=== PATIENT | female | born 1945 | race Caucasian/White ===

== ENCOUNTER → 2018-09-07 12:11 | Outpatient (CLI) | payer MEDICARE, SELFPAY ==
[2018-09-07 12:55] LABS: Add Manual Diff / Slide Review NO; Basophils Percent Auto 0.6 % (0-2); Hematocrit 37.4 % (36-46); Hemoglobin 12.5 g/dL (12.0-16.0); Lymphocytes Percent Auto 27.4 % (25-40); Mean Corpuscular HGB Conc 33.5 % (30-36); Mean Corpuscular Hemoglobin 30.5 PG (26-34); Mean Corpuscular Volume 90.9 fL (80-100); Monocytes Percent Auto 11.3 % (3-14); Neutrophils Absolute Auto 2200 /uL (3000-5900); Neutrophils Percent Auto 60.7 % (50-75); Platelet Count 305 X10^3/uL (150-400); Red Blood Cell Count 4.11 X10^6/uL (4.0-5.2); Red Cell Distribution Width 14.2 % (11.6-14.8); White Blood Cell Count 3.6 X10^3/uL (4.5-11.0)
== END ==
PROVIDERS: Visit Provider Orthopaedic Surgery
DX: Z01.818 Encounter for other preprocedural examination (principal); Z01.812 Encounter for preprocedural laboratory examination
CPT/HCPCS: 36415; 85025; 93005

== ENCOUNTER 2018-09-11 14:21 | Day surgery (SDC) | payer OTHER, MEDICARE, SELFPAY ==
[2018-09-11] VITALS (7 sets, daily range): BP systolic 134–149; BP diastolic 53–69; PULSE 74–83; RESP 9–16; TEMP 36.6–36.9; O2SAT 97–99; BMI 19.5
--- NOTE | 2018-09-11 | PATH_ITS ---
[facility] Accession Number: [id number] . 01 Material submitted: . VERTEBRAL BIOSY L3 . 02 Diagnosis: Bone, Vertebral L3, Biopsy: Fragmented bone with features suggestive of remodeling/fracture healing. No evidence of neoplasm. MRV/09/13/2018 . 02 Electronically signed: . Geraldine Guerin MD, Pathologist NPI- [id number] . 01 Gross description: . Received in formalin, labeled vertebral bone L3, is a core biopsy of barajas-red hard bone (length-0.9 cm, diameter-0.2 cm). Decalcified and submitted intact in cassette A1. ([id number]) /MRV . 02 Pathologist provided ICD-10: S32.000S . 02 CPT . 021996 Performed at: 01 [facility] [address] [address] [id number] MD Mathew Haile MD Phone: [phone] Performed at: 02 [facility] [address] [place] [id number] MD James Joshua MD Phone: [phone]
--- NOTE | 2018-09-11 | DI.RAD.S_ITS ---
PROCEDURE: XR LUMBAR SPINE MIN 4V INDICATIONS: L3 KYPHOPLASTY TECHNIQUE: AP and lateral views of the lumbar spine acquired. COMPARISON: [facility], CT, CT CHEST ABDOMEN PELVIS WITH CONTRAST, 08/04/2018, 22:48. FINDINGS: Intraoperative fluoroscopic radiographs in the AP and lateral projections document the placement of instrumentation within the compression fracture of the L3 vertebral body and subsequent placement of radiopaque material. IMPRESSION: Intraoperative fluoroscopy demonstrating instrumentation of the L3 vertebral body compression fracture with placement of radiopaque material consistent with kyphoplasty. Please refer to the operative note for procedural details. Dictated by: Colt Andrews M.D. on 09/11/2018 at 19:43 Approved by: Colt Andrews M.D. on 09/11/2018 at 19:46
[2018-09-11] MEDS: LACTATED RINGERS 1,000 ML 42 ML IV (14:30)
--- NOTE | 2018-09-11 16:08 | SUR.OPER ---
Prone on spine table, head in foam head support, padded chest rolls, gel pad at knees, lower legs supported by pillows; nipples, genitalia and toes free of pressure, arms secured on gel padded arm boards at <90 degrees abduction. Tape over blanket at thigh secured to table.
--- NOTE | 2018-09-11 16:58 | PM.PREOP ---
Pre-operative Note Interval Note Pre-op Check: Yes History & Physical Reviewed by Physician and Yes Exam Performed Changes: No
--- NOTE | 2018-09-11 16:59 | PM.OP.1 ---
Operative Date/Time/Diagnoses Date of procedure: 09/11/18 Time of procedure: 17:57 Pre-op diagnosis: L3 compression fracture Back pain Post-op diagnosis: same Procedure & Clinicians Procedure: L3 kyphoplasty Same procedure as scheduled: Yes Indications: [age] year old female with intractable pain from compression fracture of L3. They had failed conservative management and requested operative intervention. Risks and benefits of surgery were discussed and appropriate consents were obtained. Surgeon: Filipe Dotson Click Yes if Unassisted: Yes Anesthesia Type: General Operative Notes Findings: None Closure Type: primary Specimen(s): other (L3 vertebral body) Estimated Blood Loss (mL): 2 Procedure in detail: The patient was brought to the operating room and intubated on the table. They were then rolled over to the well-padded prone position. Time-out was performed. We confirmed positioning with two fluoroscopy views. The back was prepped and draped in the standard sterile fashion. Preoperative antibiotics were given. Using fluoroscopic guidance, the planned incision site was infiltrated with Marcaine with epinephrine and injected down to the entry site of the left pedicle of L3. A small stab incision was made and we advanced a Jamshiedi needle down the left pedicle into the vertebral body. A bone biopsy was harvested from this and sent to pathology. We then passed the DFine osteotome and opened it up to create a void inside the vertebral body. We then began injecting the cement. This was done with frequent fluoroscopy imaging. There was no extravasation. The bone primarily filled in the inferior aspect and became much tensor and then began getting interdigitation up to the superior aspect where the compression was. Once we had good fill of the L3 vertebral body the injection was stopped and the trocars were removed. Final x-rays were taken. The wound was cleaned. Steri-Strips and sterile dressing were placed. Patient was rolled over, extubated, and brought to recovery without complications. Complications: none Condition: stable Disposition: PACU Plan for aftercare: Outpatient. Activity as tolerated.
[2018-09-11] MEDS: CEFAZOLIN 2 GM/100 ML FROZ.PIGGY IV (17:18)
[2018-09-11] MEDS: BUPIVACAINE 0.25% W/ EPI VIAL 50 ML INJ (17:50)
== END 2018-09-11 19:15 | disposition home or self-care (01) ==
PROVIDERS: Visit Provider Orthopaedic Surgery
PROC: (CPT 22514; principal; 2018-09-11 16:15)
DX: S32.030A Wedge compression fracture of third lumbar vertebra, initial encounter for closed fracture (principal); M48.061 Spinal stenosis, lumbar region without neurogenic claudication; M54.5 Low back pain; V47.6XXA Car passenger injured in collision with fixed or stationary object in traffic accident, initial encounter
CPT/HCPCS: 22514; 72110; 76000; C1776; J0330; J0690; J1100; J2405; J2704; J3010

== ENCOUNTER → 2022-10-10 10:00 | Outpatient (CLI) | payer MEDICARE, SELFPAY ==
[2022-10-10 13:07] LABS: COVID19 -Nasal RAPID Negative (Negative)
== END ==
PROVIDERS: Referring Provider Orthopaedic Surgery Orthopaedic Surgery of the Spine; Visit Provider Orthopaedic Surgery Orthopaedic Surgery of the Spine
DX: Z20.822 Contact with and (suspected) exposure to COVID-19 (principal)
CPT/HCPCS: 87635; C9803

== ENCOUNTER 2022-10-12 11:42 | Inpatient (IN) | payer MEDICARE, SELFPAY ==
[2022-10-05 09:39] VITALS: BMI 22.6
[2022-10-12] VITALS (16 sets, daily range): BP systolic 137–154; BP diastolic 59–77; PULSE 67–105; RESP 11–19; TEMP 36.2–37.1; O2SAT 89–99; BMI 22.6
--- NOTE | 2022-10-12 | DI.RAD.S_ITS ---
PROCEDURE: XR CERVICAL SPINE 2V OR 3V INDICATIONS: C4-5 C5-6 ACDF TECHNIQUE: Two nondiagnostic intraoperative fluoroscopic view(s) of the cervical spine were acquired. COMPARISON: None. FINDINGS: Postsurgical changes of C4-C5 and C5-C6 ACDF by means interbody devices with anterior plate and screw hardware construct. Alignment is normal. Vertebral body heights maintained. Grossly normal appearance of the hardware. IMPRESSION: Expected postoperative appearance. Dictated by: Artemio Silvestre M.D. on 10/12/2022 at 16:09 Approved by: Artemio Silvestre M.D. on 10/12/2022 at 16:10
[2022-10-12] MEDS: LACTATED RINGERS 1,000 ML 42 ML IV (12:34)
[2022-10-12] MEDS: ACETAMINOPHEN 325 MG TABLET 650 MG PO ×2 (12:37→19:05)
[2022-10-12] MEDS: PREGABALIN 75 MG CAPSULE PO (12:37)
--- NOTE | 2022-10-12 12:48 | PM.PREOP ---
Pre-operative Note COVID-19 COVID-19 status: Negative Result date/Date tested (Pos, Neg/Pending): 10/11/22 Criteria for continued procedure: Expected advancement of disease process, Possibility delay results in more complex future surgery or treatment, Increased loss of function, Continuing or worsening of significant or severe pain, Deterioration of the patient's condition or overall health and Delay expected to result in less-positive ultimate med/surg outcome Interval Note History & Physical reviewed/Exam performed by Physician: Yes Changes to H&P: No
[2022-10-12] MEDS: CEFAZOLIN 2 GM/100 ML PREMIX 100 ML IV (13:42)
[2022-10-12] MEDS: EPINEPHrine 1 MG/ML 0.15 MG INJ (14:16)
[2022-10-12] MEDS: BUPIVACAINE 0.25% (PF) VIAL 30 ML INJ (14:16)
--- NOTE | 2022-10-12 14:19 | SUR.OPER ---
Supine, head on gel donut. Arms padded with gel pads, tucked at sides, draw sheet pulled overtop of torso and secured with towel clamps,towel roll under shoulders. Pillow under knees, Safety belt at thigh. Legs uncrossed. Gel pad under bilateral heels. Patient voided at approx 1310, no urinary catheter per Dr. Landry. Patient agreeable with this.
--- NOTE | 2022-10-12 16:00 | P.OP_ITS ---
Operative Date/Time/Diagnoses Date of procedure: 10/12/22 Time of procedure: 13:15 Pre-op diagnosis: 1. C4-5, C5-6 spinal stenosis 2. 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 C4-5 spondylolisthesis Post-op diagnosis: same Procedure & Clinicians Procedure: 1. C4-5, C5-6 anterior cervical diskectomy and fusion 2. C4-5, C5-6 anterior interbody cage placement 3. C4-5, C5-6 anterior instrumentation with plate and screw placement in C5-C6 and C7 vertebrae 4. Utilization of microsurgical technique and operating microscope Same procedure as scheduled: Yes Indications: Patient has been having chronic neck pain and worsening cervical radiculopathy. Patient failed multiple conservative management with worsening pain weakness and numbness in her upper extremity. Patient has been having difficulty performing activity of daily living. After discussing risks benefits of treatment options, patient elected proceed with surgery. Surgeon: Donita Landry [employer] Hand: Petra Lopez Click Yes if Unassisted: No Anesthesia Type: General Operative Notes Closure Type: primary Specimen(s): none sent Prosthetic devices, grafts, tissues, transplants, or devices: Globus Extend Plate, Titanium cages Estimated Blood Loss (mL): 5 Blood products transfused: none Procedure in detail: Patient was seen in the preoperative area. Risks and benefits of the surgery was discussed with the patient. Operative consent was obtained and placed in the chart. Patient was then taken to the operative room. Prophylactic antibiotic was given less than 0.5 hr prior to skin incision. General anesthesia was administered. Patient was placed into a supine position on her radiolucent table. Bilateral shoulders were taped down to allow proper C-arm imaging. Anterior cervical area was prepped and draped in a sterile fashion. Time-out was performed at this time. Using lateral C-arm imaging, the level between C4 and C6 was identified and marked on patient's neck. A oblique incision from midline towards medial border of sternocleidomastoid muscle was made. The platysma muscle was incised in line with skin incision. Metzenbaum scissor was used to develop the plane between the medial border of sternocleidomastoid d and the strap muscles medially. The carotid sheath and its contents were identified and protected behind the hand- held retractor during the entire case. The plane between the carotid sheath and strap muscles was developed with Metzenbaum scissors. Dissection was made down to the level of the anterior cervical fascia. Longus colli muscle was incised on the anterior aspect of vertebral bodies bilaterally from C4-6. Spinal needle was placed into the C5-6 disc space and confirmed with lateral C-arm imaging. Using microsurgical technique and operative microscope, anterior cervical diskectomy was performed at C4-5, C5-6 level. This was done by removing the disc material, removing the anterior and posterior osteophytes posterior longitudinal ligaments along with performing bilateral foraminotomies at both levels. Radha sena was found to have severe central and foraminal stenosis at both levels. Patient's stenosis was fully decompressed after decompression was completed. After the diskectomy was completed, 2 anterior interbody cages were obtained. The cages were packed with globus via cell bone grafting material. One cage each along with the bone grafting material was then packed into the interbody spaces from C4-C6 with one cage into each interbody level. After the cages were placed, the anterior cervical plate was stabilized to the C4-6 vertebrae using 2 screws at each each level. Total 6 screws were placed. After confirming placement of the hardware with AP and lateral C-arm imaging, the screws were locked into the plate using the locking mechanism and torque limiting screwdriver. During the process of screw insertion it was felt the bone was significantly soft. 4.6 mm diameter and 14 mm length screws were used in all 6 holes of the plate in order to gain additional purchase. All 6 screws had excellent purchase when the procedure was completed. After the hardware was placed and confirmed with AP and lateral C-arm imaging, the wound was irrigated with sterile normal saline. The platysma muscle and the subcutaneous tissue was closed with 2-0 Vicryl. The skin was closed with 4-0 Monocryl and Steri-Strips. Patient tolerated the procedure well. Patient was transferred recovery room in stable condition. There were no complications. Complications: none Post-operative Condition: stable Disposition: PACU Plan for aftercare: Admit to inpatient hospital
[2022-10-12] MEDS: hydrOXYzine 50 MG/ML INJ 25 MG IM (16:28)
[2022-10-12] MEDS: HYDROMORPHONE 2 MG INJ IV (16:31)
--- NOTE | 2022-10-12 16:37 | SUR.PHASEI ---
HR increased to 137 after a cough, then decreased back to upper 80s. Dr. Cortez notified.
--- NOTE | 2022-10-12 16:55 | SUR.PHASEI ---
Report given to SINCERE Duffy
[2022-10-12] MEDS: SODIUM CHLORIDE 0.9% 1,000 ML 100 ML IV (18:08)
--- NOTE | 2022-10-12 18:28 | PC.NURSE ---
Pt to room 202 via bed from PACU at 1745. Drowsy but answers questions appropriately. Denies nausea or shortness of breath. IVF infusing as ordered. SCD's on and running. Ice packs in place to decrease pain, Pt repositioned for greater comfort. Pt oriented to room, call light, bed controls, and tv controls. Ice water for Pt. Pt denies needs at this time and agrees to call for assistance as needed.
[2022-10-12] MEDS: CEFAZOLIN VIAL 1 GM in SODIUM CHLORIDE 0.9% 100 ML IV (21:38)
[2022-10-12] MEDS: OXYCODONE IR 5 MG TABLET PO (21:38)
[2022-10-12] MEDS: SENNOSIDES 8.6 MG TABLET 17.2 MG PO (21:38)
[2022-10-12] MEDS: DOCUSATE 100 MG CAPSULE PO (21:38)
[2022-10-13 02:30] VITALS: BP 129/52; PULSE 64; RESP 14; TEMP 36.3; O2SAT 96
[2022-10-13] MEDS: CEFAZOLIN VIAL 1 GM in SODIUM CHLORIDE 0.9% 100 ML IV (06:00)
[2022-10-13] MEDS: ACETAMINOPHEN 325 MG TABLET 650 MG PO ×2 (06:00→11:59)
[2022-10-13] MEDS: hydrOXYzine pamoate 25 MG CAPSULE PO (06:00)
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
[2022-10-13 08:00] VITALS: BP 127/59; PULSE 72; RESP 18; TEMP 36.2; O2SAT 95
--- NOTE | 2022-10-13 08:32 | PC.NURSE ---
Addendum entered by Tarsha Rodriguez R.N. 10/13/22 13:16: Pt given D/C instructions w/understanding HL discontinued intact. Transportation here; Pt escorted by staff via W/C to waiting vehicle. D/C in stable post op status. Original Note: Pt A/O, denies discomfort @ this time. HL RFA intact/patent. Dsg to neck CDI, soft collar in place, Pt received D/C orders; anticipate ride @ 1230. Call light w/in reach, pt calls appropriately for needs.
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
--- NOTE | 2022-10-13 11:18 | CM.DANOTE ---
DCP Assessment: Payor confirmed: Medicare & AARP PCP confirmed: Marcela White MD Pt is a 76 y.o. F who presented to the hospital for a planned back surgery with Dr. Landry. Pt brought up to the floor for further management and evaluation of surgical procedure. DCP met with pt this morning to discuss discharge needs. Pt laying on sofa bed getting IV taken out by tech. DCP introduced herself and role. Pt lives in [place] with her spouse, Dave, in a single story home with two steps to get into the home. Pt states she is fairly independent at baseline. Pt worked with therapies this morning and have cleared her for discharge. Pt denies any resources at this time. Whiteboard updated and instructed to call. Pt thankful for discussion. P: Pt to discharge home via spouse POV today. Debbie Solorzano RN/BARNEY Discharge Planning/Care Management Advanced directive, confirm from FAMILY Start: 10/12/22 18:03 Freq: Q24H Status: Active Protocol: Document 10/12/22 18:03 CM (Rec: 10/12/22 18:19 CM [id number]) Advance Directive, confirm on record Time 18:18 Person contacted Pt chart Copy received Yes Advanced directive available on record Yes CM Discharge Assessment Start: 10/13/22 11:16 Freq: Status: Active Protocol: Document 10/13/22 11:16 AJ (Rec: 10/13/22 11:17 AJ [id number]) Discharge Planning Assessment Assigned Document Management Consultant Debbie Solorzano RN/BARNEY Advance Directives? Yes: 5 Wishes Advance Directives on File No History Provided By Patient Prior Living Arrangements House Household Members spouse Type of transporation used prior to Drives own vehicle admit Independent with ADL's Yes Is patient alert and oriented? Yes Discharge Plan Home Transportation Arrangement Family POV Referrals Initiated None needed Whiteboard Updated in Patient Room with Yes name and ext. # of Document Management Consultant Comment Instructed to call Review Status In Process Please Provide Date Initial DC 10/13/22 Assessment Was Performed Next Review Type Continued Stay Review Pre-Anesthesia Assessment Start: 10/05/22 09:39 Freq: Status: Active Protocol: Document 10/05/22 09:39 CAB (Rec: 10/05/22 10:40 CAB [id number]) Pre-Anesthesia Assessment Patient Information Reviewed Via Phone Assessment Assessment Completed With Patient Comment Labs/ECG done per pt, not here , COVID screen @ [facility] 10/10/22 Primary Care Provider Marcela White Seen Specialist in Last 12 Months Yes Specialist Seen General surgeon,Orthopedist Primary Language Nigerian [employer] Technical Assistant Required No Height 152.4 cm Weight 52.617 kg Body Mass Index (BMI) 22.6 Hearing Ability Normal Visual Assist Glasses Dentition Type Teeth, Natural Present,Teeth, Missing Barriers to Learning None Hx Anesthesia Reactions No Hx Family Anesthesia Reaction No Hx Malignant Hyperthermia No Hx Blood Transfusions Yes: Infancy Rh- Hx Blood Transfusion Reaction No Anesthesia Review Requested No Banquet Food Server No alcohol intake current alcohol intake frequency holidays/special occasions only Smoking Status Never smoker Substance Use Type does not use Pain Present Pain Reported Musculoskeletal Symptoms Back Pain,Limited Range of Motion,Neck Pain,Numbness, Radiating Pain into Limb, Tingling History of Falling (Recent or History of No ) Patient is completely paralyzed or No completely immobile Mental Status Oriented to own ability Is patient on oxygen? No Does patient have BILLY/SOB No Hx Sleep Apnea No Currently Taking a Beta [place] No Can You Climb a Flight of Stairs Without Yes SOB Hx Chest Pain No Hx SOB No Hx Syncope or Dizziness No Anti-Coagulant Therapy No Has a Lpn Medical Assistant No Cardiac Testing No Hx Pacemaker/ICD No Pacemaker Rep Required? No Diet Type At Home Regular Dysphagia No Gastrointestinal Symptoms None Bladder Pattern Frequency Urinary Catheter Present No Hx Urinary Self Catheterization No Diabetes No Patient No Lactating No Hx Drug Resistant Organism No Presence of External or Internal Medical Yes: Kyphoplasty Devices Have you had any close contact with No someone diagnosed with COVID-19? Received a COVID vaccine? Yes Received all doses? Yes Marital Status Lives With spouse Current Living Arrangements House Support System Child/Children,Spouse Does the Patient Have Assistance After Yes Surgery Patient Discharge Plan Description Return Home Comment Pt advised overnight length of stay per surgeon Feels Safe in Current Environment Yes Been Physically Hurt or Threatened By a No Person in Current Environment Do you have thoughts of harming yourself None or others? Are you currently considering suicide? No Do you have a plan to hurt yourself or No Plan others? Do You Have Any Spiritual Beliefs That No May Affect Your HC Choices? Do You Have Any Cultural Practices That No May Affect Your HC Choices? Comment Church Who Can We Speak to About Patient's Care Family, friends Identifying Code for Release of Patient Declines to issue Information Health Care Proxy/Next of Kin Dave () Health Care Proxy Emergency Contact Name Camille (daughter) Emergency Contact Advance Directives? Yes: 5 Wishes Advance Directives on File No Requested Patient Bring Advanced Yes Directives DOS Power of Game Farm Supervisor No PAC Instructions Durable medical equipment, Medications to take/avoid, Nasal antibiotic,No ETOH/ petroleum product on skin DOS, NPO,Post-op transportation,Pre -surgical wash,Sensory aids, Sturdy shoes/comfortable clothes,Do not bring valuables and remove jewelry
== END 2022-10-13 12:55 | disposition home or self-care (01) | DRG 473 ==
PROVIDERS: Admitting Provider Orthopaedic Surgery Orthopaedic Surgery of the Spine; PCP Nurse Practitioner Family; Referring Provider Orthopaedic Surgery Orthopaedic Surgery of the Spine; Visit Provider Orthopaedic Surgery Orthopaedic Surgery of the Spine
PROC: 0RG20A0 Fusion of 2 or more Cervical Vertebral Joints with Interbody Fusion Device, Anterior Approach, Anterior Column, Open Approach (ICD-10-PCS; principal; 2022-10-12 13:15)
DX: M48.02 Spinal stenosis, cervical region (principal); M47.22 Other spondylosis with radiculopathy, cervical region; M43.12 Spondylolisthesis, cervical region; Z20.822 Contact with and (suspected) exposure to COVID-19
CPT/HCPCS: 72040; 76000; 87635; 94760; 94762; 97161; 97165; 97535; C9803; C1713; J0171; J0690; J1100; J1170; J2405; J2704; J3010; J3410